=== PATIENT | male | born 1990 | race Caucasian/White ===

== ENCOUNTER 2016-07-31 23:48 | Emergency (ER) | payer OTHER ==
[~2016-07-31] VITALS: Ht 165.1 cm; Wt 113.4 kg
[2016-07-31 23:50] VITALS: BP 125/72; PULSE 94; RESP 16; TEMP 97.2; O2SAT 97
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
--- NOTE | 2016-08-01 00:03 | NUR ---
Written and verbal consent obtained from patient for blood alcohol, name and verified by patient. Disinfected patient's skin with povidone-iodine that did not contain alcohol or other volatile organic compound. Collected the blood from the subject named by venipuncture, in the presence of Officer #[id number]. Used a sterile, dry hypodermic needle and dry vacuum blood collection. The dry vacuum blood collection was supplied by the officer named above. Withdrew a specimen of blood from left antecubital of the subject named above. Inverted the blood tube several times to ensure that the preservative and anticoagulant were thoroughly mixed in the blood specimen. I initialed the blood tube label for identification. The labeled blood tube was handed directly to the Officer named above. The blood tube stopper remained in place while I had possession of the blood tube. The Officer placed tube into envelope and sealed it in my presence. Envelope initialed by myself and Officer named above. Patient tolerated well, bandage applied, and bleeding controlled.
[2016-08-01 00:06] VITALS: BP 120/76; PULSE 92; RESP 18; TEMP 97.2; O2SAT 99
--- NOTE | 2016-08-01 00:06 | NUR ---
Patient in stable condition. ID arm band removed. Patient educated on pain management and to follow up with PMD. Pain Scale 0/10 Opportunity for questions provided and answered. Pt accompanied to prison by law enforcement
== END 2016-08-01 00:06 ==
LOC: SED 23:48
DX: Z02.83 Encounter for blood-alcohol and blood-drug test (principal)